=== PATIENT | male | born 1980 | race Caucasian/White ===

== ENCOUNTER 2022-08-28 15:16 | Emergency (ER) | payer SELFPAY ==
[2022-08-28 15:16] VITALS: BP 216/132; PULSE 125; RESP 24; TEMP 35.9; O2SAT 100; BMI 30.4
--- NOTE | 2022-08-28 15:33 | CT_ITS ---
STUDY: CT ABDOMEN AND PELVIS WITH CONTRAST REASON FOR EXAM: Male, 42 years old. Left lower quadrant abdominal pain. RADIATION DOSAGE (If Supplied By Facility): CTDIvol = ( 16.11 ) mGy, DLP = ( 1228.74 ) mGycm TECHNIQUE: IV 100mL Isovue-370 was administered. Transaxial images were obtained from the dome of the diaphragm to the symphysis pubis. Multiplanar coronal and sagittal images were reformatted. Individualized Dose Optimization Techniques Were Used For This CT. COMPARISON: None FINDINGS: The visualized lung bases are unremarkable. The visualized portions of the heart are within normal limits. The liver is enlarged and diffusely fatty infiltrated. No focal mass. Normal gallbladder and extrahepatic biliary system. Normal spleen. Normal pancreas. Normal bilateral adrenal glands. Normal visualized stomach. Normal small intestine. Scattered colonic diverticuli without acute inflammatory change. The appendix is visualized and appears normal. Normal abdominal aorta. Normal IVC. No retroperitoneal adenopathy. Normal right kidney. Normal right ureter. Slightly decreased cortical enhancement left kidney when compared to the right. There is minimal stranding of the perirenal fat. There is mild hydronephrosis and ureterectasis to the area of the UVJ where there is a 2 mm calcification (image 112, series 2). Normal urinary bladder. Normal prostate. No pelvic lymphadenopathy. No free air or free fluid is seen within the peritoneal cavity. Umbilical hernia of omental fat. Normal osseous structures. CT/Abdomen/Pelvis W IV Cont ONLY IMPRESSION: 1. Left UVJ calculus with mild obstructive uropathy. 2. Enlarged fatty infiltrated liver. 3. Scattered colonic diverticuli Electronically Signed: Ty Rowe DO at 16:28 EDT Reading Location ID and State: [id number] Tel [phone], Service support ,
--- NOTE | 2022-08-28 15:35 | EX.ED.DYSGE1 ---
HPI <SENTHIL Kinney - Last Filed: 08/28/22 18:45> History of Present Illness Chief Complaint: Abd Pain Narrative Narrative: Patient is a 42-year-old male with history of hypertension who presents to the emergency department for severe left lower quadrant abdominal pain. Patient states he started having pain on Thursday which was 4 days ago. Today, the pain was out of control. He does arrive diaphoretic, restless. Patient denies any drug abuse. Patient states he only takes something for his blood pressure. He states he does not have any insurance right now so he did not come right away. He denies any fever or chills. He denies any significant nausea or vomiting, blood in stool. PFSH <SENTHIL Kinney - Last Filed: 08/28/22 18:45> PFSH Home Medications ketorolac 10 mg tablet 10 mg PO TID 5 days #15 tabs 08/28/22 [Rx Last Taken Unknown] ondansetron 4 mg disintegrating tablet 4 mg PO Q8H PRN PRN Nausea #10 tabs 08/28/22 [Rx Last Taken Unknown] oxycodone-acetaminophen 5 mg-325 mg tablet (Percocet) 1 tab PO Q8H PRN pain 3 days #10 tabs 08/28/22 [Rx Last Taken Unknown] tamsulosin 0.4 mg capsule (Flomax) 0.4 mg PO DAILY #14 caps 08/28/22 [Rx Last Taken Unknown] Allergy/AdvReac Type Severity Reaction Status Date / Time No Known Allergies Allergy Verified 08/28/22 15:18 Social History Smoking Status: Never smoker ROS <SENTHIL Kinney - Last Filed: 08/28/22 18:45> ROS ED ROS Narrative Constitutional: Negative for fever, chills, weight loss, weakness. Positive for diaphoresis Eyes: Negative for vision loss, vision change, double vision ENT: Negative for any sore throat, ear pain, congestion Cardiovascular: Negative for any chest pain, tightness, palpitations Respiratory: Negative for any cough, sputum production, hemoptysis, dyspnea, dyspnea on exertion, orthopnea Gastrointestinal: Negative for any nausea, vomiting, diarrhea, constipation, blood in stool, blood in vomit. Positive for left lower quadrant abdominal pain : Negative for any urinary frequency, dysuria, retention, blood in urine Muscle skeletal: Negative for any muscle joint pain, stiffness, myalgias, arthralgias, neck pain, back pain Neurological: Negative for any headache, syncope, numbness or tingling, dizziness Skin: Negative for any rashes, lumps, itching, abrasions, lacerations Psychiatric: Negative for any depression, anxiety, stress, suicidal ideation, homicidal ideation Hematologic: Negative for any easy bruising, excessive bruising, easy bleeding Allergies: Negative for any eczema, hives, rash EXAM <SENTHIL Kinney - Last Filed: 08/28/22 18:45> Physical Exam Narrative Exam Narrative: Vital signs reviewed. Patient arrives diaphoretic, restless. Patient does appear to be in moderate distress secondary to left lower quadrant abdominal pain. Patient's vital signs show elevated blood pressure elevated heart rate, this could be secondary to pain. HEET: Head normocephalic atraumatic, TMs clear bilaterally. Posterior pharynx is clear, moist mucous membranes. Nares clear bilaterally. Neck: Supple with no lymphadenopathy or tenderness. No signs of meningismus, negative jolt sign. Cardiac: Regular rate and rhythm no murmurs gallops or rubs, equal peripheral pulses bilaterally. Respiratory: Lungs clear to auscultation bilaterally. No chest tenderness. Abdomen: Soft, nondistended. No abdominal bruit or pulsatile masses. No hepatosplenomegaly. Patient does have pain to deep palpation left lower quadrant. Patient has no peritoneal signs. Extremities: No peripheral edema, no signs of gross trauma or deformity. Active full range of motion of all extremities. Neuro: Cranial nerves II through XII intact, no focal neurological deficits. Skin: Clean dry and intact with no rash, purpura, petechiae, vesicles or pustules. Patient is significantly diaphoretic. Backs/flank: No CVA tenderness, no midline spinal tenderness, no deformity. Psych: Normal mood and affect. No SI, HI or acute psychosis. Const Vital Signs: 08/28/22 15:16 08/28/22 17:34 Temperature 96.6 F L Temperature Source Temporal Pulse Rate 125 H Respiratory Rate 24 H Blood Pressure 216/132 H 179/112 H Blood Pressure Mean 160 134 Pulse Ox 100 General Appearance ED: diaphoretic <Dr. Walt Philippe MD - Last Filed: 08/28/22 16:49> Physical Exam Const Vital Signs: 08/28/22 15:16 08/28/22 17:34 Temperature 96.6 F L Temperature Source Temporal Pulse Rate 125 H Respiratory Rate 24 H Blood Pressure 216/132 H 179/112 H Blood Pressure Mean 160 134 Pulse Ox [address] [facility] <Sammy ChristieSENTHIL - Last Filed: 08/28/22 18:45> [facility] Lab Data Labs: Laboratory Results - last 24 hr 08/28/22 08/28/22 08/28/22 15:52 15:56 17:45 WBC 15.4 H RBC 5.57 Hgb 16.8 H Hct 49.2 MCV 88.3 MCH 30.2 MCHC 34.1 RDW Std Deviation 41.1 RDW Coeff of García 12.7 Plt Count TNP MPV 11.4 Immature Gran % (Auto) 0.500 Neut % (Auto) 77.5 H Lymph % (Auto) 14.9 L [place] % (Auto) 6.4 Eos % (Auto) 0.4 Baso % (Auto) 0.3 Absolute Neuts (auto) 12.0 H Absolute Lymphs (auto) 2.29 Nucleated RBC % 0 Differential Comment SCANNED Platelet Estimate ADEQUATE Sodium 134 L Potassium 3.7 Chloride 101 Carbon Dioxide 20.0 L Anion Gap 13 BUN 15 Creatinine 1.46 H Estim Creat Clear Calc 68.77 Est GFR (MDRD) Af Amer 67 Est GFR (MDRD) Non-Af 56 L BUN/Creatinine Ratio 10.3 Glucose 168 H Lactic Acid 1.4 Calcium 10.3 H Total Bilirubin 0.80 AST 25 ALT 54 Alkaline Phosphatase 70 Total Protein 8.2 Albumin 4.3 Globulin 3.9 Albumin/Globulin Ratio 1.1 Lipase 17 Urine Color Yellow Urine Clarity Clear Urine pH 5.0 Ur Specific [place] 1.015 Urine Protein 30 H Urine Glucose (UA) Normal Urine Ketones 150 A* Urine Occult Blood 50 H Urine Nitrite Negative Urine Bilirubin Negative Urine Urobilinogen Normal Ur Leukocyte Esterase Negative Urine RBC 0-5 SEEN Urine WBC 0 SEEN Ur Squamous Epith Cells 0 SEEN Urine Bacteria 0 SEEN Urine Mucus 0 SEEN Radiography Diagnostic Testing: Clinical Impression(s) from Imaging Studies Abdomen/Pelvis CT 08/28/22 15:33 IMPRESSION: 1. Left UVJ calculus with mild obstructive uropathy. 2. Enlarged fatty infiltrated liver. 3. Scattered colonic diverticuli Electronically Signed: Ty Rowe DO at 16:28 EDT Reading Location ID and State: [address] [place] [address] Tel [phone], Service support , Treatment and Re-Evaluation :: All radiologic examinations were read, reviewed by the emergency department attending. From these reads, a plan of care will be put in place. Patient arrives in moderate distress due to left lower quad abdominal pain. Vital signs show elevated blood pressure heart rate secondary to pain. Patient is significantly diaphoretic which is causing for concern. He will receive a full abdominal work-up, he will receive IV Dilaudid, Zofran, IV fluids. Patient will receive a CT scan of the abdomen pelvis concerning for any acute diverticulitis, concern for perforation. Also concern for any ischemia, bowel obstruction. Patient was given 1 mg of Dilaudid, this did not significantly help his pain. Patient's laboratory values show a leukocytosis of blood count 15.4. Patient's chemistries show slight elevation in creatinine at 1.46, glucose 168. Patient was then given Toradol, this did greatly improve the patient's pain. Patient CT scan showed a left UVJ calculus 2 mm with mild obstructive uropathy. Fatty infiltration of liver, this does explain the patient's pain. Patient's urinalysis was negative for any infection. On reevaluation, the patient was doing much better, was ambulatory and like to be discharged. Patient has no signs or symptoms of infection, is no pyelonephritis. He will be given Percocet, Flomax, Toradol, Zofran for home. He will follow-up with urology. He was given strict return precaution. All questions answered, patient is here with his mother, patient stable for discharge. <Dr. Walt Philippe MD - Last Filed: 08/28/22 16:49> [facility] ERICA Narrative Medical decision making narrative: I have personally performed a face to face assessment of the patient and have reviewed the RANDA Note. I performed a substantive portion of the visit including all aspects of the following. My varghese findings include: History: Patient had pain in the left flank rating to the left lower quadrant first time on Thursday. Its been waxing and waning since but it is never been as bad as it is today. He also has nausea with it. Denies fevers. Denies history of kidney stone. Denies history of trauma. No neurologic symptoms. Exam: Patient looks uncomfortable. He is rolling back and forth and has trouble sitting still. He has diaphoresis. He had his abdomen is actually quite benign. Normal bowel sounds and nondistended. Peripheral pulses are intact. There is no mottling of extremities. He has no chest pain. Clinically this appears to be likely kidney stone. It certainly possible he could have [place] diverticula yet his abdomen is quite benign and this would not surprise me if this was his diagnosis. Medical Decision Making: Patient is given meds for pain IV fluids and nausea. He was given Dilaudid which did not help much. He is given Toradol. His IV has blown so we are having to replace this which she is not happy with. But I think he will need more doses of pain meds and I think IV is easier to do that and overall they will have a quicker onset. He does have a slight white count of 15.4 but no. Hemoglobin is a bit high and this might be hemoconcentration from decreased p.o. in take. Electrolytes do show mild bump of creatinine at 1.46. Liver function test showed no acute abnormalities. Lipase is normal My independent reading of his CT of the abdomen shows left hydronephrosis and renal stranding with a very small left distal UVJ stone. This is consistent with final read. This is consistent with his history and exam. Lab Data Labs: Laboratory Results - last 24 hr 08/28/22 08/28/22 08/28/22 15:52 15:56 17:45 WBC 15.4 H RBC 5.57 Hgb 16.8 H Hct 49.2 MCV 88.3 MCH 30.2 MCHC 34.1 RDW Std Deviation 41.1 RDW Coeff of García 12.7 Plt Count TNP MPV 11.4 Immature Gran % (Auto) 0.500 Neut % (Auto) 77.5 H Lymph % (Auto) 14.9 L [place] % (Auto) 6.4 Eos % (Auto) 0.4 Baso % (Auto) 0.3 Absolute Neuts (auto) 12.0 H Absolute Lymphs (auto) 2.29 Nucleated RBC % 0 Differential Comment SCANNED Platelet Estimate ADEQUATE Sodium 134 L Potassium 3.7 Chloride 101 Carbon Dioxide 20.0 L Anion Gap 13 BUN 15 Creatinine 1.46 H Estim Creat Clear Calc 68.77 Est GFR (MDRD) Af Amer 67 Est GFR (MDRD) Non-Af 56 L BUN/Creatinine Ratio 10.3 Glucose 168 H Lactic Acid 1.4 Calcium 10.3 H Total Bilirubin 0.80 AST 25 ALT 54 Alkaline Phosphatase 70 Total Protein 8.2 Albumin 4.3 Globulin 3.9 Albumin/Globulin Ratio 1.1 Lipase 17 Urine Color Yellow Urine Clarity Clear Urine pH 5.0 Ur Specific [place] 1.015 Urine Protein 30 H Urine Glucose (UA) Normal Urine Ketones 150 A* Urine Occult Blood 50 H Urine Nitrite Negative Urine Bilirubin Negative Urine Urobilinogen Normal Ur Leukocyte Esterase Negative Urine RBC 0-5 SEEN Urine WBC 0 SEEN Ur Squamous Epith Cells 0 SEEN Urine Bacteria 0 SEEN Urine Mucus 0 SEEN Radiography Diagnostic Testing: Clinical Impression(s) from Imaging Studies Abdomen/Pelvis CT 08/28/22 15:33 IMPRESSION: 1. Left UVJ calculus with mild obstructive uropathy. 2. Enlarged fatty infiltrated liver. 3. Scattered colonic diverticuli Electronically Signed: Ty Rowe DO at 16:28 EDT Reading Location ID and State: [address] [place] [address] Tel [phone], Service support , Discharge Plan Triage Chief Complaint: Abd Pain ED Midlevel Provider: Sammy Christie ED Provider: Walt Philippe Dx/Rx/DC Orders Clinical Impression: Kidney calculus Instructions: ED Kidney Stone w/ Colic Prescriptions: New oxycodone-acetaminophen [Percocet] 5-325 mg tablet 1 tab PO Q8H PRN (Reason: pain) 3 Days Qty: 10 0RF tamsulosin [Flomax] 0.4 mg capsule 0.4 mg PO DAILY Qty: 14 0RF ketorolac 10 mg tablet 10 mg PO TID 5 Days Qty: 15 0RF ondansetron 4 mg tablet,disintegrating 4 mg PO Q8H PRN PRN (Reason: Nausea) Qty: 10 0RF Primary Care Provider: Adam Grajeda Referrals: Rafael Lambert MD [Med Staff - Active Staff] - Corey Green MD [STAFF PHYSICIAN] - Activity Restrictions/Additional Instructions: Please take medications as prescribed. Please return for any worsening symptoms. Disposition Disposition: Home, Self Care
[2022-08-28] MEDS: HYDROmorphone 1 MG/ML Syringe IV (15:47)
[2022-08-28] MEDS: Ondansetron 4 MG/2 ML Vial IV (15:47)
[2022-08-28] MEDS: 0.9% Normal Saline 1,000 ML 1000 ML IV (15:47)
[2022-08-28 16:06] LABS: Absolute Lymphocyte Count 2.29 X10^3/uL (0.83-4.51); Basophil# 0.04 X10^3/uL; Basophil% 0.3 % (0-1); Eosinophil# 0.06 X10^3/uL; Eosinophils% 0.4 % (0-5); Hematocrit 49.2 % (40-54); Hemoglobin 16.8 g/dL (13.0-16.5); Lymphocyte # 2.29 X10^3/ul (0.83-4.51); Lymphocyte % 14.9 % (19-41); Mean Corp Hgb Conc 34.1 g/dL (32-36); Mean Corpuscular Hgb 30.2 pg (27.0-32.0); Mean Corpuscular Volume 88.3 fL (80-94); Mean Platelet Vol. 11.4 fl (6.2-12.0); Monocyte# 0.99 X10^3/uL; Monocyte% 6.4 % (0-10); NRBC Flagged by Analyzer 0 % (0-5); Neutrophil # 11.96 X10^3/uL (2.7-7.7); Neutrophil % 77.5 % (47-70); POSITIVE COUNT YES; RBC Distribution Width CV 12.7 % (11.6-14.6); RBC Distribution Width SD 41.1 fl (35.1-43.9); Red Blood Count 5.57 M/mm3 (4.6-6.2); White Blood Count 15.4 K/mm3 (4.4-11.0)
[2022-08-28 16:08] LABS: Differential Indicated SCAN CRITERIA MET
[2022-08-28 16:31] LABS: Differential Comment SCANNED; Platelet Estimate ADEQUATE (ADEQ)
[2022-08-28] MEDS: Ketorolac 15 MG/ML Vial IV (16:34)
[2022-08-28 16:42] LABS: ALB/GLOB Ratio 1.1 RATIO (0.9-2.4); AST(SGOT) 25 U/L (15-37); Alanine Aminotransfer ALT/SGPT 54 U/L (16-61); Albumin, Serum 4.3 g/dL (3.2-5.0); Alkaline Phosphatase 70 U/L (45-117); Anion Gap 13 (5-15); BUN 15 mg/dL (7-18); BUN/Creat Ratio 10.3 RATIO (10-20); Calcium,Total 10.3 mg/dL (8.5-10.1); Chloride 101 mmol/L (98-107); Creatinine, Serum 1.46 mg/dL (0.70-1.30); EST Glomerular Filtration Rate 56 mL/min (>60); Est Glom Filt Rate - Afr Amer 67 mL/min (>60); Estimated Creatinine Clearance 68.77 ml/min; Globulin 3.9 g/dL (2.2-4.2); Glucose 168 mg/dL (74-106); Lipase 17 U/L (13-75); Potassium 3.7 mmol/L (3.5-5.1); Protein, Total 8.2 g/dL (6.4-8.2); Sodium Level 134 mmol/L (136-145)
[2022-08-28 17:01] LABS: Lactic Acid 1.4 mmol/L (0.4-1.9)
[2022-08-28 17:34] VITALS: BP 179/112
[2022-08-28 17:55] LABS: Bacteria 0 SEEN /hpf (None Seen); Mucous, Urine 0 SEEN /hpf (<or=2+); Squamous Epithelial Cells - UA 0 SEEN /hpf (0-5); White Blood Cells 0 SEEN /hpf (0-5)
[2022-08-28 18:19] LABS: Color, Urine Yellow (Yellow); Glucose, Dipstick Normal (Normal); Leukocyte Esterase-Dipstick Negative /ul (Negative); Nitrite-Dipstick Negative (Negative); Occult Blood-Urine 50 /ul (Negative); Protein-Dipstick 30 mg/dl (Negative); Specific Gravity, Urine 1.015 (1.002-1.030); Urine Bilirubin Dipstick Negative (Negative); Urine Clarity Clear (Clear); Urine Urobilinogen Normal (Normal)
[2022-08-28 18:25] LABS: Ketone-Dipstick 150 mg/dl (Negative)
[2022-08-28 18:38] LABS: Red Blood Cells-Urine 0-5 SEEN /hpf (0-5)
== END 2022-08-28 18:47 | disposition home or self-care (01) ==
PROVIDERS: Nurse Practitioner; Emergency Provider Emergency Medicine; PCP Family Medicine; Visit Provider Emergency Medicine
DX: N13.2 Hydronephrosis with renal and ureteral calculous obstruction (principal)
CPT/HCPCS: 74177; 80053; 81001; 83605; 83690; 85025; 96374; 96375; 99283; J7030; Q9967; A4216; J2405